=== PATIENT | female | born 1985 | race Caucasian/White ===

== ENCOUNTER 2016-08-31 17:00 | Inpatient (IN) | payer BC ==
[~2016-08-31] VITALS: Ht 167.6 cm; Wt 93.0 kg
[2016-08-31 17:52] VITALS: Ht 167.6 cm; Wt 93.0 kg
[2016-08-31] MEDS ORDERED: PRENAT PO (17:55)
[2016-08-31] MEDS ORDERED: IRON18TA PO (17:56)
[2016-08-31] MEDS ORDERED: CARBOPROST 250 MCG INJ IM PRN (18:00)
[2016-08-31] MEDS ORDERED: MISOPROSTOL 200 MCG TAB PR PRN (18:00)
[2016-08-31] MEDS ORDERED: MINERAL OIL LIGHT 10 ML VIAL TOP ONE (18:00)
[2016-08-31] MEDS ORDERED: OXYTOCIN 30 UNITS/LR 500 ML IV SCH ×2 (18:00)
[2016-08-31] MEDS ORDERED: METHYLERGONOVINE 0.2 MG INJ IM PRN (18:00)
[2016-08-31] MEDS ORDERED: OXYTOCIN 30 UNITS/LR 500 ML IV PRN (18:00)
[2016-08-31] MEDS ORDERED: LIDOCAINE 1% (MPF) 30 ML INJ INJ PRN (18:00)
[2016-08-31 18:38] LABS: ADD SCAN DIFF NO
[2016-08-31 18:40] LABS: BASOPHILS % 0.3 % (0.0-2.0); EOSINOPHILS % 0.2 % (0.0-7.0); HEMOGLOBIN 11.3 g/dl (12.0-16.0); LYMPHOCYTES % 14.6 % (15.0-51.0); MEAN CORPUSCULAR HEMOGLOBIN 29.6 pg (29.0-33.0); MEAN CORPUSCULAR HGB CONC 33.2 g/dl (32.0-37.0); MEAN PLATELET VOLUME 8.9 fl (7.4-10.4); MONOCYTE # 0.7 10^3/ul (0.3-0.9); MONOCYTES % 4.9 % (0.0-11.0); NEUTROPHIL # 10.6 10^3/ul (1.6-7.5); NEUTROPHILS % 79.3 % (39.0-77.0); PLATELET COUNT 275 10^3/UL (140-415); RED BLOOD COUNT 3.82 10^6/ul (4.20-5.40); RED CELL DISTRIBUTION WIDTH 14.1 % (11.5-14.5); WHITE BLOOD COUNT 13.4 10^3/ul (4.8-10.8)
[2016-08-31 18:53] LABS: INR 0.88; PROTIME 11.9 Sec (12.2-14.2); PT RATIO 0.9
[2016-08-31 18:54] LABS: PARTIAL THROMBOPLASTIN TIME 26.5 Sec (25.0-35.0)
[2016-08-31] MEDS ORDERED: DINOPROSTONE 10 MG VAG SUPP VAG ONE (19:00)
[2016-08-31] MEDS ORDERED: AMPICILLIN 2 GM/NS (PMX) 100 ML IV ONE (19:00)
[2016-08-31] MEDS: BUTORPHANOL 2 MG INJ IV PRN (20:24)
[2016-08-31] MEDS ORDERED: LACTATED RINGER'S 1,000 ML IV PRN (21:00)
[2016-08-31] MEDS: LACTATED RINGER'S 1,000 ML IV SCH (22:46)
[2016-08-31] MEDS ORDERED: FENTAnyl 2MCG/ML-ROPIV 0.2% 100 ML ONE (23:01)
[2016-08-31] MEDS: AMPICILLIN 1 GM/NS (PMX) 50 ML IV SCH (23:03)
[2016-08-31] MEDS ORDERED: ONDANSETRON 4 MG INJ IV PRN (23:30)
[2016-08-31] MEDS ORDERED: DIPHENHYDRAMINE 50 MG INJ IV PRN (23:30)
[2016-08-31] MEDS ORDERED: KETOROLAC 30 MG INJ IV PRN (23:30)
[2016-08-31] MEDS ORDERED: HYDROmorphONE 1 MG/ML SYG IV PRN ×2 (23:30)
[2016-08-31] MEDS ORDERED: PROCHLORPERAZINE 10 MG INJ IV PRN (23:30)
[2016-08-31] MEDS ORDERED: NALOXONE (0.4 MG/ML) INJ IV PRN (23:30)
[2016-09-01] MEDS: LACTATED RINGER'S 1,000 ML IV SCH ×4 (01:56→19:52)
[2016-09-01] MEDS: AMPICILLIN 1 GM/NS (PMX) 50 ML IV SCH ×6 (02:56→22:35)
[2016-09-01] MEDS: FENTAnyl 2MCG/ML-ROPIV 0.2% 100 ML BAG EPI SCH ×4 (05:10→22:28)
[2016-09-01] MEDS ORDERED: DINOPROSTONE 10 MG VAG SUPP VAG ONE (13:30)
--- NOTE | 2016-09-01 17:15 | HP ---
Date/Time of Note Date/Time of Note DATE: 09/01/16 TIME: 17:12 OB - History Hx of Present Free Text/Dictation 30y.o primigravida at 39w1d for electiv induction Chief Complaint: for induction Estimated Due Date: Sep 07, 2016 : 1 Para: 0 Spontaneous : 0 Therapeutic : 0 Care: Good Care Ultrasounds: Normal mid trimester US Obstetrical Complications: None Medical Complications: None Past Family/Social History * Past Medical, Surgical, Family and Obstetric Histories reviewed from chart. Blood Type: O+ Rubella: immune RPR/VDRL: Negative GBS Status: Positive HBsAG: Negative OB Admission Exam Physical Exam HEENT: WNL Heart: Rhythm Normal Lungs: Clear, Equal Abdomen: WNL Extremities: Normal Reflexes: Normal Cervical Dilatation: 1cm Effacement: 50% Station: -3 Membranes: Intact Amniotic Fluid: Unevaluable Heart Rate: 130's Accelerations: Accelerations Present Decelerations: Variable Decelerations Varibility: Moderate Contractions on Admission: >10 Minutes Apart Intensity: Mild Last 72 hours Lab Results CBC & BMP 08/31/16 18:28 OB Assessment/Plan Reason for admission: induction of labor Other Assessment: IUP 39W1D Plan: Induction Induction Method: per Misoprostol Protocol ELISA KATHLEEN MD Sep 01, 2016 17:15
--- NOTE | 2016-09-01 17:17 | PN ---
Date/Time of Note Date/Time of Note DATE: 09/01/16 TIME: 17:15 OB Subjective Subjective Subjective 6X DOSE AMICILIIN GIVEN FOR GBS POSITIVE ARM CX 2-3CM 50% -2 CLEAR SMALL AMOUNT ELISA KATHLEEN MD Sep 01, 2016 17:16
[2016-09-01] MEDS ORDERED: OXYTOCIN 30 UNITS/LR 500 ML IV SCH (21:00)
[2016-09-02] MEDS: LACTATED RINGER'S 1,000 ML IV SCH (01:48)
[2016-09-02] MEDS: AMPICILLIN 1 GM/NS (PMX) 50 ML IV SCH (02:43)
[2016-09-02] MEDS: FENTAnyl 2MCG/ML-ROPIV 0.2% 100 ML BAG EPI SCH (02:44)
[2016-09-02] MEDS: BUTORPHANOL 2 MG INJ IV PRN ×2 (04:09→05:55)
[2016-09-02] MEDS ORDERED: MINERAL OIL LIGHT 10 ML VIAL TOP ONE (05:27)
--- NOTE | 2016-09-02 06:53 | LDN ---
Date/Time of Note Date/Time of Note DATE: 09/02/16 TIME: 06:49 Delivery Summary Weeks of Gestation 39w2d Placenta Delivered: Spontaneously Meconium: none Episiotomy: Yes Indication for episiotomy expected laceration Perineal laceration: 1 Laceration repair: vaginaal laceration extended high Anesthesia type: Epidural Estimated blood loss: 300 Sponge & Needle done & correct: Yes All needle counts correct: Yes Any foreign bodies felt in the: No Problems: Delivery Information Apgars 1 Minute: 8 5 Minute: 9 Suctioning Nose & mouth suctioned at kendall: Yes Delee suction performed: No Umbilical Cord Umbilical cord with: 3 Vessels Cord presentations: no nuchal cord Cord Blood was obtained: Yes Mother & Baby Disposition Disposition Mom & Baby to Maternity; Good: Yes Mom transferred to: Other () Baby to NICU: No ELISA KATHLEEN MD Sep 02, 2016 06:53
[2016-09-02 09:00] VITALS: BP 132/79; PULSE 92; RESP 18
[2016-09-02] MEDS ORDERED: OXYTOCIN 30 UNITS/LR 500 ML IV PRN (09:00)
[2016-09-02] MEDS ORDERED: METHYLERGONOVINE 0.2 MG INJ IM PRN (09:00)
[2016-09-02] MEDS ORDERED: LANOLIN 7 GM TUBE TOP PRN (09:00)
[2016-09-02] MEDS ORDERED: ZOLPIDEM 5 MG TAB PO PRN (09:00)
[2016-09-02] MEDS ORDERED: CARBOPROST 250 MCG INJ IM PRN (09:00)
[2016-09-02] MEDS ORDERED: MISOPROSTOL 200 MCG TAB PR PRN (09:00)
[2016-09-02] MEDS ORDERED: BENZOCAINE 20% 56 ML SPRAY TOP PRN (09:00)
[2016-09-02] MEDS ORDERED: WITCH HAZEL/GLYCERIN PAD PR PRN (09:00)
[2016-09-02] MEDS ORDERED: OXYCODONE/ASPIRIN (4.88/325) TAB PO PRN (09:00)
[2016-09-02] MEDS: SENNA/DOCUSATE NA (8.6MG/50MG) TAB PO SCH ×2 (09:18→21:50)
[2016-09-02] MEDS: OXYCODONE/ASPIRIN (4.88/325) TAB PO PRN ×2 (09:18→15:07)
[2016-09-02] MEDS: IBUPROFEN 600 MG TAB PO SCH ×3 (11:55→23:38)
[2016-09-02 12:00] VITALS: BP 119/84; PULSE 88; RESP 18
[2016-09-02 15:55] VITALS: BP 109/70; RESP 18
[2016-09-02 20:45] VITALS: BP 133/77; PULSE 90; RESP 18
[2016-09-03] MEDS: OXYCODONE/ASPIRIN (4.88/325) TAB PO PRN (01:05)
[2016-09-03 04:00] VITALS: BP 122/70; PULSE 89; RESP 17
[2016-09-03] MEDS: IBUPROFEN 600 MG TAB PO SCH ×2 (05:40→12:21)
[2016-09-03 07:36] LABS: ADD SCAN DIFF NO
[2016-09-03 07:39] LABS: BASOPHILS % 0.3 % (0.0-2.0); EOSINOPHILS # 0.1 10^3/ul (0.0-0.5); EOSINOPHILS % 0.6 % (0.0-7.0); HEMATOCRIT 25.8 % (37.0-47.0); HEMOGLOBIN 8.4 g/dl (12.0-16.0); LYMPHOCYTES # 2.6 10^3/ul (0.8-2.9); LYMPHOCYTES % 20.9 % (15.0-51.0); MEAN CORPUSCULAR HGB CONC 32.6 g/dl (32.0-37.0); MEAN CORPUSCULAR VOLUME 92.1 fl (82.0-101.0); MEAN PLATELET VOLUME 8.8 fl (7.4-10.4); MONOCYTE # 0.8 10^3/ul (0.3-0.9); MONOCYTES % 6.6 % (0.0-11.0); NEUTROPHIL # 8.8 10^3/ul (1.6-7.5); PLATELET COUNT 203 10^3/UL (140-415); RED CELL DISTRIBUTION WIDTH 14.5 % (11.5-14.5); WHITE BLOOD COUNT 12.4 10^3/ul (4.8-10.8)
[2016-09-03 08:30] VITALS: BP 110/75; PULSE 75; RESP 18
[2016-09-03] MEDS: SENNA/DOCUSATE NA (8.6MG/50MG) TAB PO SCH (09:51)
--- NOTE | 2016-09-03 10:23 | PD.PPDC ---
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
--- NOTE | 2016-09-03 10:40 | DS ---
Date/Time of Note Date/Time of Note DATE: 09/03/16 TIME: 10:39 Obstetrical Discharge Record Final Diagnosis Final Diagnosis: Term delivered Vaginal Delivery Obstetrical Delivery: Episiotomy, Repaired Complications Induction: Yes Condition on Discharge Physical Assessment Last Vitals: vss afebrile Voiding: Yes Bowel Movement: Yes Fundus: Firm Episiotomy: heaaling ok Calf Tenderness: No Patient Condition: Stable ELISA KATHLEEN MD Sep 03, 2016 10:40
[2016-09-04] MEDS ORDERED: DIPHTH/TET/ACEL PERTUSS (ADULT) 0.5 ML VIAL IM* ONE (09:00)
== END 2016-09-03 16:36 | disposition home or self-care (01) | DRG 775 ==
LOC: L-D 17:17 → PP1 09-02 08:44
PROVIDERS: ADMIT Obstetrics & Gynecology; ATTEND Obstetrics & Gynecology
PROC: 3E0P7GC Introduction of Other Therapeutic Substance into Female Reproductive, Via Natural or Artificial Opening (ICD-10-PCS; 2016-08-31)
PROC: 10E0XZZ Delivery of Products of Conception, External Approach (ICD-10-PCS; principal; 2016-09-02)
PROC: 0UQGXZZ Repair Vagina, External Approach (ICD-10-PCS; 2016-09-02)
DX: O99.824 Streptococcus B carrier state complicating childbirth (principal); E66.9 Obesity, unspecified; O76 Abnormality in fetal heart rate and rhythm complicating labor and delivery; O71.4 Obstetric high vaginal laceration alone; O99.214 Obesity complicating childbirth; Z68.33 Body mass index [BMI] 33.0-33.9, adult; Z3A.39 39 weeks gestation of pregnancy; Z37.0 Single live birth
CPT/HCPCS: 62319; 85025; 85610; 85730; 86592; 86900; 86901; 87340; 99464; C1751; J0290; J2590; J3010; J7120